=== PATIENT | female | born 1990 | race Caucasian/White ===

== ENCOUNTER 2016-11-22 13:33 | Emergency (ER) | payer OTHER ==
[2016-11-22 13:40] VITALS: BP 128/72; PULSE 85; TEMP 98.5; BMI 31.2
[2016-11-22] MEDS ORDERED: diazePAM 5 MG TABLET ONE (14:32)
[2016-11-22] MEDS ORDERED: KETOROLAC TROMETHAMINE 60 MG/2 ML VIAL ONE (14:32)
[2016-11-22] MEDS ORDERED: KETOROLAC TROMETHAMINE 60 MG/2 ML VIAL IM ONE (14:33)
[2016-11-22] MEDS ORDERED: diazePAM 5 MG TABLET PO ONE (14:33)
--- NOTE | 2016-11-22 14:39 | PDOC ---
History of Present Illness - General Chief Complaint: Back Pain Stated Complaint: BACK PAIN Time Seen by Provider: 11/22/16 14:04 History Source: Patient Exam Limitations: No Limitations - History of Present Illness Initial Comments: 11/22/16 14:36 My Chief Complaint: lower back pain worse on right with muscle spasm History of present illness: Patient is a 26-year-old female with no significant medical history here today complaining of lower back pain worse on right with muscle spasm since yesterday after bending over to pick something up. Patient denies any radiation of pain down the legs or any saddle anesthesia or any numbness of legs or any incontinency. Patient denies having any previous back issues. Patient reports the pain currently is a 10 out of 10 when muscle spasms in her lower back. Pain is worse when trying to get up from a seated or lying position or when walking. Patient cannot stand up straight. Pt. has not taken anything for pain today. Pt. denies any chance of has her menses and is on control. 11/22/16 14:49 11/22/16 15:22 Occurred: reports: yesterday Severity: reports: severe (right lower back ) Pain Location: reports: back (across lower back, rt worse than left with muscle spasm ) Method of Injury: Yes: other (bending over ) Modifying Factors: improves with: immobilization Loss of Consciousness: no loss of consciousness Past History - Past Medical History Allergies/Adverse Reactions: Allergies Allergy/AdvReac Type Severity Reaction Status Date / Time No Known Allergies Allergy Verified 11/22/16 13:38 Home Medications: Ambulatory Orders Cyclobenzaprine HCl [Flexeril 10 mg] 10 mg PO Q8H PRN #20 tablet 11/22/16 Asthma: No Cancer: No Cardiac Disorders: No Diabetes: No HTN: No Seizures: No Thyroid Disease: No - Reproductive History (#): 3 Para: 0 Cervical CA: No Dysfunctional Uterine Bleeding: No Ectopic : No Endometrial CA: No Polycystic Ovaries: No Spontaneous : 2 - Immunization History Immunization Up to Date: Yes - Psycho/Social/Smoking Cessation Hx Anxiety: No Suicidal Ideation: No Smoking Status: No Smoking History: Never smoked Have you smoked in the past 12 months: No Number of Cigarettes Smoked Daily: 0 Information on smoking cessation initiated: No Hx Alcohol Use: No Drug/Substance Use Hx: No Substance Use Type: None Hx Substance Use Treatment: No Review of Systems - Review of Systems Able to Perform ROS?: Yes Constitutional: No: Symptoms Reported HEENTM: No: Symptoms Reported Respiratory: No: Symptoms reported Cardiac (ROS): No: Symptoms Reported ABD/GI: No: Symptoms Reported : No: Symptoms Reported Musculoskeletal: Yes: Back Pain (lumbar paraspinal muscle ), Muscle Pain ( paraspinal muscles lumbar ) Integumentary: No: Symptoms Reported Neurological: No: Symptoms reported *Physical Exam - Vital Signs Last Vital Signs Temp Pulse Resp BP Pulse Ox 98.5 F 85 18 128/72 100 11/22/16 13:39 11/22/16 13:39 11/22/16 13:39 11/22/16 13:39 11/22/16 13:39 - Physical Exam General Appearance: Yes: Appropriately Dressed Respiratory/Chest: positive: Lungs Clear, Normal Breath Sounds. negative: Chest Tender, Respiratory Distress Cardiovascular: positive: Regular Rhythm, Regular Rate, S1, S2 Musculoskeletal: positive: Normal Inspection, Decreased Range of Motion (at waist ), Muscle Spasm (lumbar paraspinal muscle ). negative: CVA Tenderness, CVA Tenderness (R), CVA Tenderness (L), Vertebral Tenderness Integumentary: positive: Normal Color Neurologic: positive: Fully Oriented, Alert, Normal Response, Motor Strength 5/ 5 (legs b/l ), Respond to painful stimul, Responsive. negative: Sensory Deficit (legs b/l ) Medical Decision Making - Medical Decision Making 11/22/16 14:38 Patient is a 26-year-old female with no significant medical history here today complaining of lower back pain worse on right with muscle spasm since yesterday after bending over to pick something up. Patient denies any radiation of pain down the legs or any saddle anesthesia or any numbness of legs or any incontinency. Patient denies having any previous back issues. Patient reports the pain currently is a 10 out of 10 when muscle spasms in her lower back. lower back pain with muscle spasm worse on rt. side PLAN: toradol 60 mg IM valium 5 mg po now ortho follow up 11/22/16 14:49 11/22/16 14:51 11/22/16 15:25 pain and muscle has decreased is able to stand up straight flexeril 10 mg q 8 hrs prn muscle spasm # 7 days ibuprofen prn follow up with orthopedist *DC/Admit/Observation/Transfer Diagnosis at time of Disposition: Muscle spasm of back Low back strain Qualifiers: Encounter type: initial encounter Qualified Code(s): S39.012A - Strain of muscle, fascia and tendon of lower back, initial encounter - Discharge Dispostion Disposition: HOME Condition at time of disposition: Stable - Referrals Referrals: Jose Huitron [Primary Care Provider] - Mayank Ortiz MD [Staff Physician] - - Patient Instructions Additional Instructions: Follow-up with orthopedist if pain continues for further evaluation Return to emergency room if symptoms worsen or new symptoms worsen Ibuprofen as needed as directed by crm administrator for pain Patient voiced his understanding of discharge instructions and all questions were answered - Post Discharge Activity Work/School Note: Back to Work
== END 2016-11-22 15:36 | disposition home or self-care (01) ==
LOC: JERFT 13:33
PROC: 3E0233Z Introduction of Anti-inflammatory into Muscle, Percutaneous Approach (ICD-10-PCS; principal; 2016-11-22)
DX: S39.012A Strain of muscle, fascia and tendon of lower back, initial encounter (principal); M62.830 Muscle spasm of back; X50.0XXA Overexertion from strenuous movement or load, initial encounter; Y93.89 Activity, other specified; Y92.89 Other specified places as the place of occurrence of the external cause
CPT/HCPCS: 96372; 99281-25

== ENCOUNTER 2018-07-13 22:24 | Emergency (ER) | payer OTHER ==
[2018-07-13 22:57] VITALS: BMI 34.3
--- NOTE | 2018-07-13 23:58 | PDOC ---
History of Present Illness - General Chief Complaint: Cold Symptoms Stated Complaint: COLD SYMPTOMS Time Seen by Provider: 07/13/18 23:18 History Source: Patient Exam Limitations: No Limitations Past History - Past Medical History Allergies/Adverse Reactions: Allergies Allergy/AdvReac Type Severity Reaction Status Date / Time No Known Allergies Allergy Verified 07/13/18 22:57 Home Medications: Ambulatory Orders NK [No Known Home Medication] 07/13/18 Asthma: No Cancer: No Cardiac Disorders: No COPD: No Diabetes: No HTN: No Seizures: No Thyroid Disease: No - Reproductive History (#): 3 Para: 0 Cervical CA: No Dysfunctional Uterine Bleeding: No Ectopic : No Endometrial CA: No Polycystic Ovaries: No Spontaneous : 2 - Immunization History Immunization Up to Date: Yes - Suicide/Smoking/Psychosocial Hx Smoking Status: No Smoking History: Never smoked Have you smoked in the past 12 months: No Number of Cigarettes Smoked Daily: 0 Information on smoking cessation initiated: No Hx Alcohol Use: No Drug/Substance Use Hx: No Substance Use Type: None Hx Substance Use Treatment: No *Physical Exam - Vital Signs Last Vital Signs Temp Pulse Resp BP Pulse Ox 99.6 F 93 H 18 108/68 94 L 07/13/18 22:54 07/13/18 22:54 07/13/18 22:54 07/13/18 22:54 07/13/18 22:54 - Physical Exam HEENT: positive: Pharyngeal Erythema (Minimal), Nasal Congestion (Mild), Rhinorrhea. negative: Muffled/Hoarse voice, Tonsillar Exudate, Sinus Tenderness , TM Bulging, TM Dull, TM Erythema, Excessive drooling Respiratory/Chest: positive: Lungs Clear, Normal Breath Sounds. negative: Respiratory Distress Cardiovascular: positive: Regular Rhythm, Regular Rate, S1, S2. negative: Murmur Gastrointestinal/Abdominal: positive: Normal Bowel Sounds, Soft. negative: Tender, Distended, Guarding, Rebound Integumentary: positive: Normal Color Neurologic: positive: Fully Oriented, Alert, Normal Mood/Affect Moderate Sedation - Procedure Monitoring Vital Signs: Procedure Monitoring Vital Signs Temperature 99.6 F 07/13/18 22:54 Pulse Rate 93 H 07/13/18 22:54 Respiratory Rate 18 07/13/18 22:54 Blood Pressure 108/68 07/13/18 22:54 O2 Sat by Pulse Oximetry (%) 94 L 07/13/18 22:54 Medical Decision Making - Medical Decision Making 27 y/o F with no sig pmh presents with sore throat, mostly dry cough (w/ occasional clear phlegm), chills, feeling hot occasionally (did not check temperature), B/L ear pain, nasal congestion and rhinorrhea x 3 days. Has tried Mucinex which did not help much. Denies sob, cp, abd pain, n/v/d, recent travel , sick contacts Repeat pulse ox was 99% Likely viral syndrome Supportive care discussed Stable for d/c 07/13/18 23:54 *DC/Admit/Observation/Transfer Diagnosis at time of Disposition: Viral URI - Discharge Dispostion Disposition: HOME Condition at time of disposition: Stable Decision to Admit order: No - Referrals Referrals: Amadou Wills MD [Primary Care Provider] - 3 days - Patient Instructions Printed Discharge Instructions: DI for Viral Upper Respiratory Infection -- Adult Additional Instructions: Thank you for choosing [facility]. It was a pleasure taking care of you. Likely you have viral infection Use saline nasal spray, nedi-pot, humidifier to help with congestion Do salt water gargles to help with sore throat. Follow-up with your doctor in 2-3 days. Return to the Emergency Department if your symptoms worsen or persist, you have fever, see white spots in back of throat, shortness of breath, chest pain, severe abdominal pain, vomiting, or other concerning symptoms. - Post Discharge Activity
[2018-07-14 00:53] VITALS: BP 110/76; PULSE 88; TEMP 98.6
== END 2018-07-14 00:10 | disposition home or self-care (01) ==
LOC: JER 22:24
DX: J06.9 Acute upper respiratory infection, unspecified (principal)
CPT/HCPCS: 99281-25